=== PATIENT | female | born 1980 | race Caucasian/White ===

== ENCOUNTER 2017-08-13 23:08 | Emergency (ER) | payer BC ==
[~2017-08-13] VITALS: Ht 162.6 cm; Wt 50.8 kg
[2017-08-13 23:12] VITALS: BP 112/68
--- NOTE | 2017-08-13 23:39 | NUR ---
DR. CHARLTON AT BEDSIDE FOR EVAL.
== END 2017-08-13 23:57 | disposition home or self-care (01) ==
LOC: ER 23:14
DX: S60.011A Contusion of right thumb without damage to nail, initial encounter (principal); W26.8XXA Contact with other sharp object(s), not elsewhere classified, initial encounter; Y93.89 Activity, other specified; Y92.89 Other specified places as the place of occurrence of the external cause; Y99.8 Other external cause status
CPT/HCPCS: A4606; Z7502; Z7610

== ENCOUNTER 2021-06-10 13:03 | Emergency (ER) | payer BC, OTHER ==
[~2021-06-10] VITALS: Ht 160 cm; Wt 48.1 kg
[2021-06-10] MEDS ORDERED: ACETAMINOPHEN ES 500 MG TABLET ONE (13:37)
[2021-06-10] MEDS ORDERED: ONDANSETRON HCL/PF 4 MG/2 ML VIAL ONE (13:37)
--- NOTE | 2021-06-10 13:37 | NUR ---
[employer] AT BEDSIDE
[2021-06-10] MEDS: ONDANSETRON HCL/PF 4 MG/2 ML VIAL IVP ONE (13:40)
[2021-06-10] MEDS: ACETAMINOPHEN ES 500 MG TABLET PO ONE (13:41)
[2021-06-10 13:52] LABS: BASOPHILS % (AUTO) 0.7 % (0.0-2.0); EOSINOPHILS % (AUTO) 0.4 % (0.0-6.0); HEMATOCRIT 41 % (33-45); HEMOGLOBIN 13.9 g/dL (11.5-14.8); LYMPHOCYTES # (AUTO) 1.4 K/uL (0.8-4.8); LYMPHOCYTES % (AUTO) 23.9 % (20.0-44.0); MEAN CORPUSCULAR HGB CONC 34 g/dl (31.0-36.0); MEAN CORPUSCULAR VOLUME 97 fL (82-100); MONOCYTES # (AUTO) 0.4 K/uL (0.1-1.30); MONOCYTES % (AUTO) 5.9 % (2.0-12.0); NEUTROPHILS # (AUTO) 4.1 K/uL (1.8-8.9); NEUTROPHILS % (AUTO) 69.1 % (43.0-81.0); PLATELET COUNT (AUTO) 282 K/uL (150-450); RED BLOOD CELL COUNT(AUTO) 4.23 MIL/uL (4.0-5.2); WHITE BLOOD COUNT (AUTO) 5.9 K/uL (4.3-11.0)
[2021-06-10] MEDS: IV NS 0.9% 1,000 ML BAG IV ONE (13:59)
[2021-06-10 14:03] LABS: CALCIUM, SERUM 8.5 mg/dL (8.5-10.1); CARBON DIOXIDE 29 mmol/L (21-32); CHLORIDE 103 mmol/L (98-107); CREATININE 0.7 mg/dL (0.6-1.3); GLUCOSE 119 mg/dL (74-106); POTASSIUM 3.8 mmol/L (3.5-5.1); SODIUM SERUM 139 mmol/L (136-145); UREA NITROGEN, BLOOD 10 mg/dL (7-18)
--- NOTE | 2021-06-10 14:11 | NUR ---
URINE COLLECTED AND SENT TO LAB
[2021-06-10 14:15] LABS: ALANINE AMINOTRANSFERASE 19 U/L (12-78); ALKALINE PHOSPHATASE 44 U/L (46-116); ASPARTATE AMINOTRANSFERASE 15 U/L (15-37); BILIRUBIN,DIRECT 0.2 mg/dL (0.0-0.2); BILIRUBIN,TOTAL 0.9 mg/dL (0.2-1.0); TOTAL PROTEIN, SERUM 7.4 g/dL (6.4-8.2)
--- NOTE | 2021-06-10 14:27 | NUR ---
TAKEN TO CT
[2021-06-10] MEDS ORDERED: ONDA4TAB5 PO (15:01)
[2021-06-10] MEDS ORDERED: MECL-159 PO (15:01)
[2021-06-10 15:08] VITALS: BP 111/37
--- NOTE | 2021-06-10 15:08 | NUR ---
IV removed. Catheter intact and site benign. Pressure and 4x4 applied to site. No bleeding noted.Patient discharged to home in stable condition. Written and verbal after care instructions given. Patient verbalizes understanding of instruction.
== END 2021-06-10 15:09 | disposition home or self-care (01) ==
LOC: ER 13:08
DX: H81.399 Other peripheral vertigo, unspecified ear (principal); R51.9 Headache, unspecified; Z79.899 Other long term (current) drug therapy
CPT/HCPCS: 36415; 70450; 71045; 80048; 80076; 82962; 84484; 84703; 85025; 93005; 96361; 96374; 99285; J2405; J7030